=== PATIENT | female | born 1955 | race Caucasian/White ===

== ENCOUNTER 2020-08-14 09:06 | Outpatient (REF) | payer OTHER, SELFPAY ==
[2020-08-14 09:31] LABS: MANUAL DIFF FLAG NO
[2020-08-14 09:33] LABS: Basophils Absolute Auto 0.1 X10*3/uL (0.0-0.2); Eosinophils Absolute Auto 0.3 X10*3/uL (0.0-0.4); Eosinophils Percent Auto 4.8 % (0-4); Hematocrit 38.3 % (37-47); Hemoglobin 12.2 g/dl (12.0-16.0); Imm Gran Abs Auto 0.03 X10*3/uL (0.00-0.03); Imm Gran Pct Auto 0.5 % (0.0-0.4); Lymphocytes Absolute Auto 2.8 X10*3/uL (1.2-4.9); Lymphocytes Percent Auto 46.3 % (20-40); Mean Corpuscular HGB Conc 31.9 g/dl (31.0-35.0); Mean Corpuscular Hemoglobin 27.2 pg (27.0-33.0); Mean Corpuscular Volume 85.5 fL (80-98); Mean Platelet Volume 10.5 fL (9.4-12.3); Monocytes Absolute Auto 0.4 X10*3/uL (0.1-1.2); Monocytes Percent Auto 6.5 % (2-11); Neutrophils Absolute Auto 2.5 X10*3/uL (2.0-8.3); Neutrophils Percent Auto 40.9 % (45-73); Platelet Count 274 X10*3/uL (160-400); Red Blood Count 4.48 X10*6/uL (4.20-5.50); Red Cell Distribution Width 14.2 % (11.0-16.0)
[2020-08-14 10:01] LABS: Alanine Aminotransferase 21 U/L (0-31); Albumin Level 4.2 g/dL (3.5-5.0); Alkaline Phosphatase 136 U/L (39-117); Anion Gap 12 (12-20); Aspartate Amino Transferase 18 U/L (5-31); Bilirubin Total 0.4 mg/dL (0.0-1.0); Blood Urea Nitrogen 15 mg/dL (9-16); Calcium 8.9 mg/dL (8.4-10.2); Carbon Dioxide 28 mmol/L (22-29); Chloride 107 mmol/L (96-108); Cholesterol 181 mg/dL; Estimated Glomerular Filt Rate > 60; Glucose Random 92 mg/dL (60-115); HDL Cholesterol 47 mg/dL; LDL Cholesterol Calculated 101 mg/dl; Potassium 4.2 mmol/l (3.3-5.1); Sodium 143 mmol/L (135-145); Total Protein 6.8 g/dL (6.5-8.0); Triglycerides 165 mg/dL
[2020-08-14 10:23] LABS: Thyroid Stimulating Hormone 2.37 uIU/mL (0.32-4.0)
== END 2020-08-14 09:07 | disposition home or self-care (01) ==
LOC: HO.LAB 09:06
PROVIDERS: PCP Internal Medicine; Visit Provider Internal Medicine
DX: E78.00 Pure hypercholesterolemia, unspecified (principal); F31.5 Bipolar disorder, current episode depressed, severe, with psychotic features; K22.70 Barrett's esophagus without dysplasia
CPT/HCPCS: 36415; 80053; 80061; 84443; 85025

== ENCOUNTER 2020-10-23 06:37 | Day surgery (SDC) | payer OTHER, SELFPAY ==
[2020-10-17 14:38] VITALS: BMI 26.0
--- NOTE | 2020-10-22 09:32 | P.CONAN_ITS ---
Documented by User: Tammy Herrera 10/22/20 09:33 HPI - Anesthesia Eval Consult details Narrative: 65yo F for Upper Endoscopy [facility] Past Medical History Medical History Anxiety and depression Barretts esophagus High cholesterol Seasonal allergies Surgical History Surgical History History of bladder suspension procedure Hx of colonoscopy Hx of endoscopy Hx of right knee surgery Social History Social History Are you a primary team primary care physician to a significant other at home: No Do you presently have visiting nurse or other home services: No Smoking Status: Former smoker Smoking Quit Date: many years ago Use of substances other than those prescribed or required for medical reasons: No Have you been hit, kicked, punched, or otherwise hurt by someone within the past year? If so, by whom?: No Advance Directives: No Advance Directives Information Provided: No Advance Directives on File: No Recently lost weight without trying: No Meds Allergies Allergy/AdvReac Type Severity Reaction Status Date / Time Penicillins Allergy Rash Verified 10/17/20 14:38 Home Medications Medication Instructions Recorded Confirmed Last Taken Type omeprazole 2 cap PO DAILY 10/17/20 10/17/20 10/23/20 05:30 History paroxetine HCl 1 tab PO DAILY 10/17/20 10/17/20 10/23/20 05:30 History simvastatin 1 tab PO BEDTIME 10/17/20 10/17/20 Unknown History Exam Exam Date and Time: October 22, 2020 0932 Height,Weight and Vital Signs: Height 5 ft 3 in Weight 66.678 kg Assessment and Plan Assessment Anesthesia Assessment: Chart Reviewed Documented by User: Luna Mares 10/23/20 07:35 [facility] Past Medical History Medical History Anxiety and depression Barretts esophagus High cholesterol Seasonal allergies Family History Family history of problems with anesthesia: No Surgical History Surgical History History of bladder suspension procedure Hx of colonoscopy Hx of endoscopy Hx of right knee surgery History of Problems with Anesthesia: No Social History Social History Are you a primary team primary care physician to a significant other at home: No Do you presently have visiting nurse or other home services: No Smoking Status: Former smoker Smoking Quit Date: many years ago Use of substances other than those prescribed or required for medical reasons: No Have you been hit, kicked, punched, or otherwise hurt by someone within the past year? If so, by whom?: No Advance Directives: No Advance Directives Information Provided: No Advance Directives on File: No Recently lost weight without trying: No Meds Allergies Allergy/AdvReac Type Severity Reaction Status Date / Time Penicillins Allergy Rash Verified 10/17/20 14:38 Home Medications Medication Instructions Recorded Confirmed Last Taken Type omeprazole 2 cap PO DAILY 10/17/20 10/17/20 10/23/20 05:30 History paroxetine HCl 1 tab PO DAILY 10/17/20 10/17/20 10/23/20 05:30 History simvastatin 1 tab PO BEDTIME 10/17/20 10/17/20 Unknown History Exam Height,Weight and Vital Signs: Vital Signs Temp Pulse Resp BP Pulse Ox 10/23/20 06:54 97.2 F 61 16 138/76 95 Airway Mallampati Class: II TM Dist: >3cm Neck ROM: Full Heart: RRR Lungs: CTAB Assessment and Plan Assessment Anesthesia Assessment: Anesthesia Plan Discussed and Chart Reviewed Final Anesthetic Review NPO: Yes ASA Class: II Final Preanesthetic Review: No Changes in Pt Med Stat, Meds/Allgs Chart Reviewed, Consent Obtained/Reviewed and Anes Risks/Benef Reviewed Patient Risk: Low Procedure Risk: Low Assessment/Block/Sedation in SS: Assess/Block/Sedation-SS Anesthetic Plan Anesthetic Plan: MAC: Disposition: Standard PACU
[2020-10-23 06:54] VITALS: BP 138/76; PULSE 61; RESP 16; TEMP 36.2; O2SAT 95
[2020-10-23] MEDS: Lactated Ringers 1,000 ML 100 ML IVCONT (07:03)
--- NOTE | 2020-10-23 07:13 | MHC.SHP ---
Pre-Procedural Eval Section A The patient is an INPATIENT: No Changes since office visit: No Cold of Flu in the past 2 weeks, No New Medical Problems, No Changes in Medication and No Patient answered all questions The History & Physical has been completed within 30 days and I have reviewed it.: Yes Section B Chief Complaint: riggs's Allergies: Allergies Allergy/AdvReac Type Severity Reaction Status Date / Time Penicillins Allergy Rash Verified 10/17/20 14:38 Plan I have reviewed the history and physical and performed a pertinent physical examination on my patient. No changes have occurred unless specified.
[2020-10-23 07:57] VITALS: BP 105/58; PULSE 70; RESP 12; TEMP 36.3; O2SAT 98
--- NOTE | 2020-10-23 07:59 | PM.OP ---
Brief Operative Note Date of Service: 10/23/20 Pre-op diagnosis: barretts Post-op diagnosis: same (gastric polyps) Procedure: egd Surgeon: Ben Estrada Anesthesia: MAC Estimated blood loss (mL): 5 Pathology: other (bxs gastric polyp, egj, 28 cm) Condition: stable Disposition: PACU
[2020-10-23 08:12] VITALS: BP 120/83; PULSE 69; RESP 17; TEMP 36.3; O2SAT 99
--- NOTE | 2020-10-23 08:17 | OP_ITS ---
SURGEON: Ben Estrada MD INDICATIONS: Vásquez's esophagus. PREOPERATIVE DIAGNOSIS: POSTOPERATIVE DIAGNOSIS: PROCEDURE PERFORMED: Upper endoscopy with biopsy. ESTIMATED BLOOD LOSS: COMPLICATIONS: ANESTHESIA: ASSISTANTS: SPECIMENS: MEDICATIONS: Monitored anesthesia care. DESCRIPTION OF PROCEDURE: History and physical performed. The risks and benefits of the procedure were explained to the patient. Informed consent was obtained. The patient was placed in the left lateral decubitus position. The Olympus video gastroscope was introduced into the esophagus, stomach, and duodenum. Examination was performed. The scope was removed. She tolerated the procedure well and was taken to recovery in stable condition. FINDINGS: ESOPHAGUS: The esophagus was somewhat shortened. There was 2 cm length of Vásquez's esophagus without any ulcerated areas or raised lesions. Biopsies were obtained at the EG junction at 28 cm in all 4 quadrants. There was a large hiatal hernia. STOMACH: The stomach showed several gastric polyps. The largest measured approximately 12 mm to 14 mm and was semipedunculated. This was biopsied. The others were all less than 5 mm. DUODENUM: The bulb and second portion were normal. IMPRESSION: 1. Vásquez's esophagus. 2. Gastric polyps. RECOMMENDATION: Follow up the biopsy results. MD ANNITA Dale/KELLI / [id number]
== END 2020-10-23 08:41 | disposition home or self-care (01) ==
PROVIDERS: PCP Internal Medicine; Visit Provider Internal Medicine Gastroenterology
PROC: 0DJ08ZZ Inspection of Upper Intestinal Tract, Via Natural or Artificial Opening Endoscopic (ICD-10-PCS; CPT 43235; principal; 2020-10-23 07:30)
DX: K22.70 Barrett's esophagus without dysplasia (principal); K31.7 Polyp of stomach and duodenum; Z79.899 Other long term (current) drug therapy; Z87.891 Personal history of nicotine dependence; Z88.0 Allergy status to penicillin
CPT/HCPCS: 43239; 88305; 88342

== ENCOUNTER 2021-06-10 10:54 | Outpatient (REF) | payer OTHER, SELFPAY ==
--- NOTE | ~2021-06-10 | MM_ITS ---
EXAMINATION: MM SCREENING DIGITAL BREAST TOMOSYNTHESIS, BILATERAL CLINICAL INFORMATION: Screening. Asymptomatic. The lifetime risk of breast cancer based on the Tyrer-Cuzick Model is 7%. COMPARISON: Mammography: 04/23/2020, 11/25/2018, 11/21/2017 TECHNIQUE: Digital breast tomosynthesis is performed in both the craniocaudal and mediolateral oblique views along with computer-aided detection (CAD). Synthesized 2D images are generated from the tomosynthesis. FINDINGS: There are scattered areas of fibroglandular density (ACR BI-RADS breast composition Category b). There are no significant masses, abnormal calcifications, or other abnormalities. Parenchymal pattern is similar to prior studies. No developing density. No significant changes. MM/MM tomosynthesis screening BI IMPRESSION: No mammographic evidence of malignancy. ASSESSMENT: BI-RADS 1: Negative RECOMMENDATION: Routine annual mammography screening. This patient's information was entered into a reminder system with a target due date for their next mammogram.
== END 2021-06-10 10:55 | disposition home or self-care (01) ==
LOC: HO.MAMMO 10:54
PROVIDERS: Visit Provider Internal Medicine
DX: Z12.31 Encounter for screening mammogram for malignant neoplasm of breast (principal)
CPT/HCPCS: 77063; 77067

== ENCOUNTER 2021-08-26 08:39 | Outpatient (REF) | payer OTHER, SELFPAY ==
[2021-08-26 10:02] LABS: Alanine Aminotransferase 48 U/L (0-31); Albumin Level 4.4 g/dL (3.5-5.0); Alkaline Phosphatase 128 U/L (39-117); Anion Gap 13 (12-20); Aspartate Amino Transferase 29 U/L (5-31); Bilirubin Total 0.4 mg/dL (0.0-1.0); Blood Urea Nitrogen 13 mg/dL (9-16); Calcium 9.6 mg/dL (8.4-10.2); Carbon Dioxide 26 mmol/L (22-29); Chloride 107 mmol/L (96-108); Cholesterol 218 mg/dL; Estimated Glomerular Filt Rate > 60; Glucose Random 108 mg/dL (60-115); HDL Cholesterol 50 mg/dL; LDL Cholesterol Calculated 131 mg/dl; Potassium 4.2 mmol/L (3.3-5.1); Sodium 142 mmol/L (135-145); Total Protein 7.2 g/dL (6.5-8.0); Triglycerides 186 mg/dL
== END 2021-08-26 08:40 | disposition home or self-care (01) ==
LOC: HO.LAB 08:39
PROVIDERS: PCP Internal Medicine; Visit Provider Internal Medicine
DX: E78.2 Mixed hyperlipidemia (principal); F33.42 Major depressive disorder, recurrent, in full remission; K22.70 Barrett's esophagus without dysplasia
CPT/HCPCS: 36415; 80053; 80061

== ENCOUNTER 2022-06-11 11:24 | Outpatient (REF) | payer OTHER, SELFPAY ==
--- NOTE | ~2022-06-11 | MM_ITS ---
EXAMINATION: MM SCREENING DIGITAL BREAST TOMOSYNTHESIS, BILATERAL CLINICAL INFORMATION: Screening. Asymptomatic. The lifetime risk of breast cancer based on the Tyrer-Cuzick Model is 6.5%. COMPARISON: Mammography: 06/10/2021 and studies dating back to 09/26/2013. TECHNIQUE: Digital breast tomosynthesis is performed in both the craniocaudal and mediolateral oblique views along with computer-aided detection (CAD). Synthesized 2D images are generated from the tomosynthesis. FINDINGS: There are scattered areas of fibroglandular density (ACR BI-RADS breast composition Category b). There is a stable parenchymal pattern of the right breast with no new abnormal dominant mass or suspicious grouping of microcalcifications. Within the superior central aspect of the left breast on mediolateral oblique projection there is a partially circumscribed density measuring approximately 7 cm in diameter and lying approximately 7 cm from the nipple. I do not see a definite correlate on craniocaudal view. Recommend spot compression mediolateral oblique image as well as full-field 90 degree view. MM/MM tomosynthesis screening BI IMPRESSION: Left breast density on mediolateral oblique image for which spot compression film and possible ultrasound is recommended. ASSESSMENT: BI-RADS 0: Incomplete - Need Additional Imaging Evaluation. RECOMMENDATION: 1. Additional views of the left breast. 2. Targeted ultrasound if warranted after review of the additional views. 3. Radiology department staff will contact the patient for additional imaging. This patient's information was entered into a reminder system with a target due date for their next mammogram.
== END 2022-06-11 11:25 | disposition home or self-care (01) ==
LOC: HO.MAMMO 11:24
PROVIDERS: PCP Internal Medicine; Visit Provider Internal Medicine
DX: Z12.31 Encounter for screening mammogram for malignant neoplasm of breast (principal)
CPT/HCPCS: 77063; 77067

== ENCOUNTER 2022-06-16 08:56 | Outpatient (REF) | payer OTHER, SELFPAY ==
--- NOTE | ~2022-06-16 | MM_ITS ---
EXAMINATION: MM DIAGNOSTIC DIGITAL BREAST TOMOSYNTHESIS, LEFT CLINICAL INFORMATION: Asymmetric density superior left breast COMPARISON: Mammography: 06/11/2022 and studies dating back to 10/10/2015. TECHNIQUE: Digital breast tomosynthesis is performed. 2D images are generated from the tomosynthesis. The following views are obtained: Spot compression mediolateral oblique and 90 degree mediolateral views. FINDINGS: There are scattered areas of fibroglandular density (ACR BI-RADS breast composition Category b). The questioned density about the superior aspect of the left breast is seen to represent a turn in vessel without underlying suspicious mass. Results are provided to the patient at time of visit by the technologist. MM/MM tomosynthesis added views L IMPRESSION: Question density represents a turn in vessel with no mammographic evidence of malignancy. ASSESSMENT: BI-RADS 1: Negative RECOMMENDATION: Routine annual mammography screening due in 12 months. This patient's information was entered into a reminder system with a target due date for their next mammogram.
== END 2022-06-16 08:57 | disposition home or self-care (01) ==
LOC: HO.MAMMO 08:56
PROVIDERS: PCP Internal Medicine; Visit Provider Internal Medicine
DX: N64.89 Other specified disorders of breast (principal)
CPT/HCPCS: 77061; 77065

== ENCOUNTER 2022-08-29 08:37 | Outpatient (REF) | payer OTHER, SELFPAY ==
[2022-08-29 09:52] LABS: Alanine Aminotransferase 34 U/L (0-31); Albumin Level 4.5 g/dL (3.5-5.0); Alkaline Phosphatase 167 U/L (39-117); Anion Gap 16 (12-20); Aspartate Amino Transferase 28 U/L (5-31); Bilirubin Total 0.5 mg/dL (0.0-1.0); Blood Urea Nitrogen 15 mg/dL (9-16); Calcium 9.1 mg/dL (8.4-10.2); Carbon Dioxide 24 mmol/L (22-29); Chloride 108 mmol/L (96-108); Cholesterol 170 mg/dL; Estimated Glomerular Filt Rate > 60; Glucose Random 90 mg/dL (60-115); HDL Cholesterol 56 mg/dL; LDL Cholesterol Calculated 89 mg/dl; Potassium 4.5 mmol/L (3.3-5.1); Sodium 143 mmol/L (135-145); Total Protein 7.1 g/dL (6.5-8.0); Triglycerides 128 mg/dL
== END 2022-08-29 08:38 | disposition home or self-care (01) ==
LOC: HO.LAB 08:37
PROVIDERS: PCP Internal Medicine; Visit Provider Internal Medicine
DX: E78.00 Pure hypercholesterolemia, unspecified (principal); F33.41 Major depressive disorder, recurrent, in partial remission; K22.70 Barrett's esophagus without dysplasia
CPT/HCPCS: 36415; 80053; 80061

== ENCOUNTER 2022-11-18 09:48 | Outpatient (REF) | payer OTHER, SELFPAY ==
[2022-11-18 11:06] LABS: MANUAL DIFF FLAG NO
[2022-11-18 11:14] LABS: Basophils Absolute Auto 0.1 X10*3/uL (0.0-0.2); Basophils Percent Auto 1.5 % (0-2); Eosinophils Absolute Auto 0.2 X10*3/uL (0.0-0.4); Eosinophils Percent Auto 3.8 % (0-4); Hematocrit 36.9 % (37.0-47.0); Hemoglobin 11.5 g/dl (12.0-16.0); Imm Gran Abs Auto 0.03 X10*3/uL (0.00-0.03); Imm Gran Pct Auto 0.5 % (0.0-0.4); Lymphocytes Absolute Auto 2.7 X10*3/uL (1.2-4.9); Lymphocytes Percent Auto 45.6 % (20-40); Mean Corpuscular HGB Conc 31.2 g/dl (31.0-35.0); Mean Corpuscular Hemoglobin 26.3 pg (27.0-33.0); Mean Corpuscular Volume 84.4 fL (80.0-98.0); Mean Platelet Volume 11.1 fL (9.4-12.3); Monocytes Absolute Auto 0.4 X10*3/uL (0.1-1.2); Neutrophils Absolute Auto 2.5 x10*3/uL (2.0-8.3); Neutrophils Percent Auto 42.6 % (45-73); Platelet Count 350 X10*3/uL (160-400); Red Blood Count 4.37 X10*6/uL (4.20-5.50); Red Cell Distribution Width 15.2 % (11.0-16.0); White Blood Count 5.8 X10*3/uL (4.8-10.8)
[2022-11-18 11:48] LABS: Alanine Aminotransferase 27 U/L (0-31); Albumin Level 4.1 g/dL (3.5-5.0); Alkaline Phosphatase 141 U/L (39-117); Anion Gap 12 (12-20); Aspartate Amino Transferase 22 U/L (5-31); Bilirubin Total 0.5 mg/dL (0.0-1.0); Blood Urea Nitrogen 14 mg/dL (9-16); Calcium 8.9 mg/dL (8.4-10.2); Carbon Dioxide 28 mmol/L (22-29); Chloride 107 mmol/L (96-108); Cholesterol 161 mg/dL; Estimated Glomerular Filt Rate > 60; Glucose Fasting 85 mg/dL (60-99); HDL Cholesterol 49 mg/dL; LDL Cholesterol Calculated 90 mg/dl; Potassium 4.7 mmol/L (3.3-5.1); Sodium 142 mmol/L (135-145); Total Protein 6.5 g/dL (6.5-8.0); Triglycerides 114 mg/dL
== END 2022-11-18 09:49 | disposition home or self-care (01) ==
LOC: HO.10HDL 09:48
PROVIDERS: Visit Provider Internal Medicine
DX: Z00.00 Encounter for general adult medical examination without abnormal findings (principal); E78.00 Pure hypercholesterolemia, unspecified; F33.41 Major depressive disorder, recurrent, in partial remission; I10 Essential (primary) hypertension
CPT/HCPCS: 36415; 80053; 80061; 85025

== ENCOUNTER 2023-07-22 14:09 | Outpatient (REF) | payer OTHER, SELFPAY | END 2023-07-22 14:10 | disposition home or self-care (01) | LOC: HO.MAMMO 14:09 | PROVIDERS: PCP Internal Medicine; Visit Provider Internal Medicine | DX: Z12.31 Encounter for screening mammogram for malignant neoplasm of breast (principal) | CPT/HCPCS: 77063; 77067 ==

== ENCOUNTER → 2023-07-22 14:15 | Outpatient (BNV) | payer OTHER, SELFPAY | PROVIDERS: PCP Internal Medicine; Visit Provider Radiology Diagnostic Radiology | DX: Z12.31 Encounter for screening mammogram for malignant neoplasm of breast (principal) | CPT/HCPCS: 77063; 77067 ==

== ENCOUNTER 2024-01-22 07:40 | Day surgery (SDC) | payer OTHER, SELFPAY ==
--- NOTE | 2024-01-20 12:16 | P.CONAN_ITS ---
Documented by User: Tammy Herrera NP 01/20/24 12:16 HPI - Anesthesia Eval Consult details Narrative: 68yo F for Upper Endoscopy [facility] Past Medical History Medical History HTN (hypertension) Anxiety and depression High cholesterol Seasonal allergies Barretts esophagus Family History Family history of problems with anesthesia: No Surgical History Surgical History History of esophagogastroduodenoscopy (EGD) Hx of endoscopy Hx of right knee surgery History of bladder suspension procedure Hx of colonoscopy History of Problems with Anesthesia: No Social History Social History Are you a primary residential care officer to a significant other at home: No Do you presently have visiting nurse or other home services: No Patient Tobacco Use Status: Never used Tobacco Use of substances other than those prescribed or required for medical reasons: No Are you DNR?: No Advance Directives: No Advance Directives Information Provided: Yes Meds Allergies Allergy/AdvReac Type Severity Reaction Status Date / Time Penicillins Allergy Rash Verified 01/22/24 08:20 Home Medications ?Medication ?Instructions ?Recorded ?Confirmed ?Last Taken ?Type omeprazole 20 mg capsule,delayed 2 cap PO DAILY 10/17/20 01/22/24 01/21/24 History release simvastatin 20 mg tablet 1 tab PO BEDTIME 10/17/20 01/22/24 01/21/24 History atorvastatin 40 mg tablet 40 mg PO BEDTIME 01/20/24 01/22/24 01/21/24 History losartan 50 mg-hydrochlorothiazide 1 tab PO DAILY 01/20/24 01/22/24 01/21/24 History 12.5 mg tablet paroxetine HCl 10 mg tablet 10 mg PO DAILY 01/20/24 01/22/24 01/21/24 History Assessment and Plan Assessment Anesthesia Assessment: Chart Reviewed Final Anesthetic Review Family History of Problems with Anesthesia: No History of Problems with Anesthesia: No Documented by User: Luke Mcintyre MD 01/22/24 08:22 PMF Past Medical History Medical History HTN (hypertension) Anxiety and depression High cholesterol Seasonal allergies Barretts esophagus Surgical History Surgical History History of esophagogastroduodenoscopy (EGD) Hx of endoscopy Hx of right knee surgery History of bladder suspension procedure Hx of colonoscopy Social History Social History Are you a primary residential care officer to a significant other at home: No Do you presently have visiting nurse or other home services: No Patient Tobacco Use Status: Never used Tobacco Use of substances other than those prescribed or required for medical reasons: No Are you DNR?: No Advance Directives: No Advance Directives Information Provided: Yes Meds Allergies Allergy/AdvReac Type Severity Reaction Status Date / Time Penicillins Allergy Rash Verified 01/22/24 08:20 Home Medications ?Medication ?Instructions ?Recorded ?Confirmed ?Last Taken ?Type omeprazole 20 mg capsule,delayed 2 cap PO DAILY 10/17/20 01/22/24 01/21/24 History release simvastatin 20 mg tablet 1 tab PO BEDTIME 10/17/20 01/22/24 01/21/24 History atorvastatin 40 mg tablet 40 mg PO BEDTIME 01/20/24 01/22/24 01/21/24 History losartan 50 mg-hydrochlorothiazide 1 tab PO DAILY 01/20/24 01/22/24 01/21/24 History 12.5 mg tablet paroxetine HCl 10 mg tablet 10 mg PO DAILY 01/20/24 01/22/24 01/21/24 History Exam Airway Mallampati Class: III TM Dist: >3cm Neck ROM: Full Assessment and Plan Assessment Anesthesia Assessment: Anesthesia Plan Discussed Final Anesthetic Review NPO: Yes ASA Class: II Final Preanesthetic Review: No Changes in Pt Med Stat, Meds/Allgs Chart R jeffrey, Consent Obtained/Reviewed and Anes Risks/Benef Reviewed Patient Risk: Intermediate Procedure Risk: Low Anesthetic Plan Anesthetic Plan: TIVA Disposition: Standard PACU
[2024-01-20 14:32] VITALS: BMI 23.4
[2024-01-22 08:03] VITALS: BMI 23.5
[2024-01-22 08:11] VITALS: BP 131/67; PULSE 60; RESP 16; TEMP 36.1; O2SAT 94
[2024-01-22] MEDS: Lactated Ringers 1,000 ML 100 ML IVCONT (08:12)
--- NOTE | 2024-01-22 09:11 | MHC.SHP ---
Pre-Procedural Eval Section A - 24 Hr Update-Section A only Date of Service: 01/22/24 Section B - Complete if H&P > 30 days Chief Complaint: Vásquez's esophagus without dysplasia Details of Present Illness: see H&P no changes Relevant Family History (Specify if Yes): No Relevant Social History: None Present Medications: see Short Stay Collaborative assessment Medical History: No relevant PMH Allergies: Allergies Allergy/AdvReac Type Severity Reaction Status Date / Time Penicillins Allergy Rash Verified 01/22/24 08:20 Review of Systems Sugical H&P ROS: Negative: Constitution, Cardiovascular, Respiratory, Neurological, Psychiatric, Hem-Onc, Allergic/Immunologic, Gastrointestinal, Genitourinary, Musculoskeletal, Integumentary, Endocrine and Eyes/Ears/Nose/Throat Exam Surgical H&P Exam: Normal: HEENT, Normal: Heart, Normal: Lungs, Normal: Extremities, Normal: Abdomen, Normal: Skin and Normal: Neurological Plan Diagnosis/Plan: Unchanged I have reviewed the history and physical and performed a pertinent physical examination on my patient. No changes have occurred unless specified. Time Spent With Patient Time: Total time managing care of this patient today ____ minutes.
[2024-01-22 09:59] VITALS: BP 114/71; PULSE 74; RESP 16; TEMP 36.6; O2SAT 98
[2024-01-22 10:14] VITALS: BP 118/70; PULSE 63; RESP 16; O2SAT 99
[2024-01-22 10:27] VITALS: BP 115/70; PULSE 69; RESP 16; TEMP 36.8; O2SAT 97
--- NOTE | 2024-01-22 10:29 | OP_ITS ---
DATE OF SERVICE: 01/22/2024 SURGEON: Ben Estrada MD INDICATIONS: Vásquez esophagus. PREOPERATIVE DIAGNOSIS: POSTOPERATIVE DIAGNOSIS: PROCEDURE PERFORMED: Upper endoscopy with biopsy. ESTIMATED BLOOD LOSS: COMPLICATIONS: ANESTHESIA: Monitored anesthesia care. ASSISTANTS: SPECIMENS: DESCRIPTION OF PROCEDURE: A history and physical was performed. The risks and benefits of the procedure were explained to the patient and informed consent was obtained. The patient was placed in the left lateral decubitus position. The Olympus video gastroscope was introduced into the esophagus, stomach, and duodenum. Examination was performed and the scope was removed. She tolerated the procedure well and was returned to the recovery area in stable condition. FINDINGS: Esophagus: There was a 2 cm area of Vásquez esophagus without any raised lesions or ulcerated areas. Biopsies were obtained at 28 cm and at the EG junction at 30 cm. There was a large hiatal hernia, which made the exam difficult. That along with the patient's J-shaped stomach made intubating the duodenum challenging. There was a large 10 mm gastric polyp on the lesser curvature of the anterior wall. This showed some inflammatory changes, likely from prolapse. Biopsies were obtained from that polyp. Duodenum: The bulb and 2nd portion were identified and appeared normal. IMPRESSION: 1. Vásquez esophagus. 2. Large hiatal hernia. 3. Gastric polyp. RECOMMENDATION: Follow up the biopsy results. MD ANNITA Dale/YADIL / [id number]
== END 2024-01-22 11:09 | disposition home or self-care (01) ==
PROVIDERS: PCP Internal Medicine; Visit Provider Internal Medicine Gastroenterology
PROC: 0DJ08ZZ Inspection of Upper Intestinal Tract, Via Natural or Artificial Opening Endoscopic (ICD-10-PCS; CPT 43235; principal; 2024-01-22 10:20)
DX: K22.70 Barrett's esophagus without dysplasia (principal); K31.7 Polyp of stomach and duodenum; K44.9 Diaphragmatic hernia without obstruction or gangrene; I10 Essential (primary) hypertension; Z79.899 Other long term (current) drug therapy; Z88.0 Allergy status to penicillin
CPT/HCPCS: 43239; 88305; 88313; 88342; J2704

== ENCOUNTER 2024-01-26 11:46 | Emergency (ER) | payer OTHER, SELFPAY ==
--- NOTE | ~2024-01-26 | XR_ITS ---
EXAMINATION: XR KNEE, LEFT CLINICAL INFORMATION: Fall COMPARISON: None available. TECHNIQUE: Four views of the left knee. FINDINGS: No fracture or joint effusion. Alignment is anatomic. Joint spaces are maintained. No abnormal soft tissue calcification. XR/XR knee LT 4V IMPRESSION: Normal left knee.
--- NOTE | ~2024-01-26 | CT_ITS ---
EXAMINATION: CT HEAD WITHOUT CONTRAST CLINICAL INFORMATION: Head strike COMPARISON: None TECHNIQUE: Contiguous axial imaging was performed from the skull base to vertex without intravenous administration of contrast. This CT examination was performed using dose optimization techniques as appropriate, variously including the following: *Automated exposure control *Adjustment of mA and/or kV according to patient size (this includes techniques or standardized protocols for targeted exams where dose is matched to indication/reason for exam; i.e. extremities or head) *Use of iterative reconstruction technique DLP: 595.35 mGy-cm FINDINGS: There is no evidence of acute intracranial hemorrhage or territorial infarction. Chronic white matter small vessel ischemic changes. Mild cerebral atrophy. No abnormal mass effect or midline shift is seen. Iqbal to white matter differentiation is well preserved. No extra-axial fluid collections are identified. The ventricles are normal in size. There is no abnormal attenuation within the brain parenchyma. The osseous structures and soft tissues are normal. The mastoid air cells and visualized portions of the paranasal sinuses are well aerated. Multiple bilateral soft tissue densities potentially representing sebaceous cyst some of which appear calcified. CT/CT cervical spine wo IV con IMPRESSION: 1. No acute intracranial pathology. 2. Chronic white matter small vessel ischemic changes. EXAMINATION: Noncontrast CT scan of the cervical spine. INDICATION: Fall COMPARISON: None. TECHNIQUE: Helical, multidetector axial images were obtained from the occiput to the upper thorax. Coronal and sagittal reformats of the cervical spine were provided for interpretation. DLP: 283.14 mGy-cm FINDINGS: No acute fractures or dislocations of the cervical spine are seen. Multilevel degenerative changes. Anatomic alignment and positioning of the vertebral bodies and posterior elements is noted. The atlantoaxial joint and craniovertebral articulations are normal without evidence of subluxation. There is no prevertebral soft tissue swelling. Subcentimeter hypodense foci bilateral thyroid lobes. Based on the recommendations of the ACR Incidental Thyroid Findings Committee (JACR 2015 Sep; 12(2):143-50), no imaging followup is recommended for incidental thyroid nodules with largest axial dimension less than 1.5 cm in patients greater than 35 years of age in the absence of high risk imaging features, symptomatic thyroid disease, or increased risk for thyroid cancer. Biapical pleural parenchymal lung scarring. IMPRESSION: 1. No acute visible fracture or dislocation. 2. Multilevel degenerative changes.
--- NOTE | ~2024-01-26 | CT_ITS ---
EXAMINATION: CT HEAD WITHOUT CONTRAST CLINICAL INFORMATION: Head strike COMPARISON: None TECHNIQUE: Contiguous axial imaging was performed from the skull base to vertex without intravenous administration of contrast. This CT examination was performed using dose optimization techniques as appropriate, variously including the following: *Automated exposure control *Adjustment of mA and/or kV according to patient size (this includes techniques or standardized protocols for targeted exams where dose is matched to indication/reason for exam; i.e. extremities or head) *Use of iterative reconstruction technique DLP: 595.35 mGy-cm FINDINGS: There is no evidence of acute intracranial hemorrhage or territorial infarction. Chronic white matter small vessel ischemic changes. Mild cerebral atrophy. No abnormal mass effect or midline shift is seen. Iqbal to white matter differentiation is well preserved. No extra-axial fluid collections are identified. The ventricles are normal in size. There is no abnormal attenuation within the brain parenchyma. The osseous structures and soft tissues are normal. The mastoid air cells and visualized portions of the paranasal sinuses are well aerated. Multiple bilateral soft tissue densities potentially representing sebaceous cyst some of which appear calcified. CT/CT head/brain wo IV con IMPRESSION: 1. No acute intracranial pathology. 2. Chronic white matter small vessel ischemic changes. EXAMINATION: Noncontrast CT scan of the cervical spine. INDICATION: Fall COMPARISON: None. TECHNIQUE: Helical, multidetector axial images were obtained from the occiput to the upper thorax. Coronal and sagittal reformats of the cervical spine were provided for interpretation. DLP: 283.14 mGy-cm FINDINGS: No acute fractures or dislocations of the cervical spine are seen. Multilevel degenerative changes. Anatomic alignment and positioning of the vertebral bodies and posterior elements is noted. The atlantoaxial joint and craniovertebral articulations are normal without evidence of subluxation. There is no prevertebral soft tissue swelling. Subcentimeter hypodense foci bilateral thyroid lobes. Based on the recommendations of the ACR Incidental Thyroid Findings Committee (JACR 2014; 12(2):143-50), no imaging followup is recommended for incidental thyroid nodules with largest axial dimension less than 1.5 cm in patients greater than 35 years of age in the absence of high risk imaging features, symptomatic thyroid disease, or increased risk for thyroid cancer. Biapical pleural parenchymal lung scarring. IMPRESSION: 1. No acute visible fracture or dislocation. 2. Multilevel degenerative changes.
--- NOTE | ~2024-01-26 | XR_ITS ---
EXAMINATION: XR HAND/WRIST, RIGHT CLINICAL INFORMATION: Fall COMPARISON: None TECHNIQUE: PA, lateral, and oblique views of the right hand and wrist. FINDINGS: There is no fracture. There is osteoarthritis of the second DIP joint manifested by marginal osteophytes. Remaining bones joints soft tissues are normal.. XR/XR hand wrist RT IMPRESSION: 1. No fracture. 2. Osteoarthritis of the second DIP joint.
[2024-01-26 12:13] VITALS: BP 144/75; PULSE 81; RESP 16; TEMP 36.6; O2SAT 95; BMI 23.2
--- NOTE | 2024-01-26 12:13 | ED_ITS ---
HPI - General Adult General Chief complaint: Fall Stated complaint: Fall yest/L knee, wrist pain Time Seen by Provider: 01/26/24 13:21 Source: patient Mode of arrival: ambulatory Limitations: no limitations History of Present Illness ED Provider: Stephan Chaudhari PA-C HPI narrative: This is a 68 yo female pmh of HTN, anxiety and dpression, high cholesterol, seasonal allergies, and Barretts esophagus presents status post trip and fall yesterday. Patient reports she landed on both wrists and is now experiencing right wrist and left knee pain. Denies head strike or loss of consciousness, however states she sustained a small laceration to to top of her lip, bleeding controlled. Not on blood thinners. Denies headache, weakness, numbness, tingling, fever, chills, chest pain, sob, trauma to teeth. Up to date on tetanus. No preceding sx to fall such as cp, sob, dizziness, weakness reports strictly trip on the sidewalk / mechanical Related Data Home Medications ?Medication ?Instructions ?Recorded ?Confirmed omeprazole 20 mg capsule,delayed 2 cap PO DAILY 10/17/20 01/22/24 release simvastatin 20 mg tablet 1 tab PO BEDTIME 10/17/20 01/22/24 atorvastatin 40 mg tablet 40 mg PO BEDTIME 01/20/24 01/22/24 losartan 50 mg-hydrochlorothiazide 1 tab PO DAILY 01/20/24 01/22/24 12.5 mg tablet paroxetine HCl 10 mg tablet 10 mg PO DAILY 01/20/24 01/22/24 Previous Rx's ?Medication ?Instructions ?Recorded acetaminophen 325 mg capsule 325 mg PO Q4H PRN pain #30 caps 01/26/24 (Tylenol) ibuprofen 600 mg tablet 600 mg PO Q6H PRN fever or pain 01/26/24 #30 tabs Allergies Allergy/AdvReac Type Severity Reaction Status Date / Time Penicillins Allergy Rash Verified 01/26/24 12:18 Review of Systems Review of Systems: Yes all other systems are reviewed and are negative PMFSH Past Medical History Attestation statement: The following information was validated with the patient. Source: old records reviewed and nursing notes reviewed Medical History HTN (hypertension) Anxiety and depression High cholesterol Seasonal allergies Barretts esophagus Surgical History History of esophagogastroduodenoscopy (EGD) Hx of endoscopy Hx of right knee surgery History of bladder suspension procedure Hx of colonoscopy Social History Social History Are you a primary personal caregiver to a significant other at home: No Do you presently have visiting nurse or other home services: No Patient Tobacco Use Status: Never used Tobacco Advance Directives: No Advance Directives Information Provided: Yes Do you have a plan to hurt others: No Plan Physical Exam ED Vital Signs: Vital Signs - 24 hr 01/26/24 12:13 Temperature 97.9 F Pulse Rate 81 Respiratory Rate 16 Blood Pressure 144/75 H Pulse Oximetry 95 Oxygen Delivery Method Room Air BMI result Body Mass Index 23.2 vss. Appearance: Alert.? Oriented X3.? No acute distress.? Head: Bandage covering laceration to top of lip, bleeding controlled seems to be scabbed over and healing. No trauma to teeth. Normocephalic, atraumatic, no step-offs or deformities Eyes: Pupils equal, round and reactive to light.? Neck: Normal inspection.? Neck supple.? CVS: Normal heart rate and rhythm.? Pulses normal.? Respiratory: No respiratory distress.? Breath sounds normal.? Abdomen: Soft and nontender.? Skin: Skin warm and dry.? Normal skin color.? Normal skin turgor.? Extremities: Slight edema to right wrist and abrasion to left knee w/ overlying ecchymosis and mild edema, bleeding controlled.?Minimal ttp of right wrist and left knee.Full ROM in bilateral upper and lower extremities. 5/5 strength to bilateral upper and lower extremities. 2+ DP, AT,PT and popliteal puless equal and b/l. Radail pulses 2+ b/. No wrist drop b/l. No scaphoid tenderness b/l. Normal sensation distally to b/l UE and LE w/ < 2 second cap refil. Back: No midline tenderness, no C-spine tenderness, full range of motion Neuro: Oriented X 3.? No motor deficit.? No sensory deficit. CN 2-12 intact . Normal finger to nose, heel to espinosa, steady tandem gait normal coordination. Negative romberg and pronator drift. NIHSS-0 GCS-15 Course Course Course Narrative: This is a Rapid Medical Examination (RME) performed by Sofi Leiva PA-C in [facility]. Full HPI, ROS, assessment and treatment plan per primary provider in the Main ED. 68 yo female here for eval of right wrist pain and left knee pain s/p mechanical fall yesterday. admits she was walking outside and while looking around, tripped on the sidewalk. FOOSH. No LOC. No head strike however admits to grazing her lip across the concrete side walk. not on AC. abrasions noted to upper lip and anterior left knee. right wrist wtih minimal swelling. FROM intact. mail processing associate strength intact. 2+radial pulse. FROM intact to left knee. 2+ popliteal, dp/pt pulse intact. ambulating with steady gait. EOMs intact w/o entrapment. small upper lip hematoma. dentition intact. Plan: xrs Reevaluation(s) Reevaluation #1: No acute findings on CT head and cervical spine.Normal left knee. Xray of rt wrist no fracture. OA of the second DIPjoint. Tylenol given Twan wrap for r knee will be put on by nursing/tech. Educated patient on diagnosis and treatment plan, answered all question, patient verbalizes understanding. At this time patient will be discharged home, advised to return with new or worsening symptoms. Educated on worrisome signs and symptoms and when to return. At this time I feel comfortable discharge home. Time: 15:21 Medical Decision Making Medical Decision Making [facility] Narrative: 1340 68 yo female with right wrist and left knee pain status post fall on sidewalk, laceration to top of lip. PE: Extremities: Slight edema to right wrist and abrasion to left knee, bleeding controlled.?Minimal ttp of right wrist and left knee.Full ROM in bilateral upper and lower extremities. 5/5 strength to bilateral upper and lower extremities Bandage covering laceration to top of lip, bleeding controlled. Differential: Right wrist sprain vs strain, left knee abrasion w/ possible sprai n or strain. Low suspicion for ligament or tendon tear.. Unlikely fracture, threat to limb, neurovascular compromise, brain bleed. No signs of traumatic injury to chest, abdomen pelvis, or teeth. Plan: Imaging pending. Differential Diagnosis Differential Diagnoses: The differential diagnosis associated with the presentation includes Right wrist sprain vs strain, left knee abrasion w/ possible sprain or strain. Low suspicion for ligament or tendon tear.. Unlikely fracture, threat to limb, neurovascular compromise, brain bleed. No signs of traumatic injury to chest, abdomen pelvis, or teeth. Admission/Observation Consideration of admission/observation: Escalation of care including admission/observation considered (unlikely) unlikely Independent Interpretation I performed an independent interpretation of an: CT Scan (CT/CT head/brain wo IV con IMPRESSION: 1. No acute intracranial pathology. 2. Chronic white matter small vessel ischemic changes. IMPRESSION: 1. No acute visible fracture or dislocation. 2. Multilevel degenerative changes. ) External Record Review External record reviewed: Inpatient record, Office record, Outpatient record, Prior outpatient labs, Primary care record and Outside ED record Prescription Management I considered prescription management with: Pain Medication (tylenol ibuprofen ) Chronic Conditions Patient?s care impacted by: Hypertension and Other (Anxiety, depression, high cholesterol, seasonal allergies, Barretts esophagus) Critical Care Time Critical Care Time Critical Care Time: No Discharge Plan Discharge Clinical Impression: Fall, Acute pain of left knee, Acute pain of right wrist, Laceration of lip, Concussion without loss of consciousness Patient Disposition: Home, Self-Care Instructions: Wrist Injury (ED), Laceration (DC), Knee Pain (ED), Post Concussion Syndrome (ED), R.I.C.E. Treatment (ED), Fall Prevention (ED) Additional Instructions: Take your medications as prescribed. If you were prescribed antibiotics today, it is important that you take your medication to their entirety, do not skip any doses, do not finish them early. Follow-up with your primary care provider this week. Return to the emergency department with new or worsening symptoms. Such as fevers, chills, chest pain, shortness of breath, nausea, vomiting, dizziness, headache, vision changes, lethargy In case of emergency call 911 Apply the Twan wrap to left knee to help with swelling. Rest, ice, compress and elevate. If you continue to have pain please follow-up with orthopedics. You may have gotten a concussion from this fall. Please read handout carefully on post concussive syndrome return with any new or worsening symptoms. You can take ibuprofen every 6 hours Tylenol every 4 as needed for pain or discomfort. CT/CT head/brain wo IV con IMPRESSION: 1. No acute intracranial pathology. 2. Chronic white matter small vessel ischemic changes. IMPRESSION: 1. No acute visible fracture or dislocation. 2. Multilevel degenerative changes. Prescriptions: New ibuprofen 600 mg tablet 600 mg PO Q6H PRN (Reason: fever or pain) Qty: 30 0RF acetaminophen [Tylenol] 325 mg capsule 325 mg PO Q4H PRN (Reason: pain) Qty: 30 0RF No Action simvastatin 20 mg tablet 1 tab PO BEDTIME omeprazole 20 mg capsule,delayed release(DR/EC) 2 cap PO DAILY atorvastatin 40 mg tablet 40 mg PO BEDTIME paroxetine HCl 10 mg tablet 10 mg PO DAILY losartan-hydrochlorothiazide 50-12.5 mg tablet 1 tab PO DAILY Referrals: Maggie Gong MD [Primary Care Provider] - 2 days Print Language: Pashto
[2024-01-26] MEDS: Acetaminophen 325 MG TABLET 975 MG PO (16:09)
[2024-01-26 16:12] VITALS: BP 135/70; PULSE 80; RESP 16; TEMP 36.4; O2SAT 95
== END 2024-01-26 16:16 | disposition home or self-care (01) ==
PROVIDERS: Emergency Provider Emergency Medicine; PCP Internal Medicine
DX: S06.0X0A Concussion without loss of consciousness, initial encounter (principal); S01.511A Laceration without foreign body of lip, initial encounter; M25.562 Pain in left knee; M25.531 Pain in right wrist; I10 Essential (primary) hypertension; W01.0XXA Fall on same level from slipping, tripping and stumbling without subsequent striking against object, initial encounter; Y93.9 Activity, unspecified; Y92.480 Sidewalk as the place of occurrence of the external cause; Y99.9 Unspecified external cause status
CPT/HCPCS: 70450; 72125; 73110; 73130; 73564; 99283; 99284

== ENCOUNTER 2024-02-15 08:40 | Outpatient (REF) | payer OTHER, SELFPAY ==
[2024-02-15 11:07] LABS: MANUAL DIFF FLAG NO
[2024-02-15 11:08] LABS: Basophils Absolute Auto 0.1 X10*3/uL (0.0-0.2); Basophils Percent Auto 1.1 % (0-2); Eosinophils Absolute Auto 0.4 X10*3/uL (0.0-0.4); Eosinophils Percent Auto 6.2 % (0-4); Hematocrit 35.7 % (37.0-47.0); Hemoglobin 11.5 g/dl (12.0-16.0); Imm Gran Abs Auto 0.02 X10*3/uL (0.00-0.03); Imm Gran Pct Auto 0.3 % (0.0-0.4); Lymphocytes Absolute Auto 3.4 X10*3/uL (1.2-4.9); Lymphocytes Percent Auto 47.6 % (20-40); Mean Corpuscular HGB Conc 32.2 g/dl (31.0-35.0); Mean Corpuscular Hemoglobin 26.7 pg (27.0-33.0); Mean Platelet Volume 10.8 fL (9.4-12.3); Monocytes Absolute Auto 0.4 X10*3/uL (0.1-1.2); Monocytes Percent Auto 5.9 % (2-11); Neutrophils Absolute Auto 2.7 x10*3/uL (2.0-8.3); Neutrophils Percent Auto 38.9 % (45-73); Platelet Count 330 X10*3/uL (160-400); Red Cell Distribution Width 14.9 % (11.0-16.0); White Blood Count 7.1 X10*3/uL (4.8-10.8)
[2024-02-15 11:30] LABS: Alanine Aminotransferase 26 U/L (0-31); Albumin Level 4.2 g/dL (3.5-5.0); Alkaline Phosphatase 105 U/L (39-117); Anion Gap 16 (12-20); Aspartate Amino Transferase 23 U/L (5-31); Bilirubin Total 0.5 mg/dL (0.0-1.0); Blood Urea Nitrogen 19 mg/dL (9-16); Calcium 9.1 mg/dL (8.4-10.2); Carbon Dioxide 28 mmol/L (22-29); Chloride 103 mmol/L (96-108); Cholesterol 162 mg/dL (<200); Estimated Glomerular Filt Rate > 60; Glucose Random 90 mg/dL (60-115); HDL Cholesterol 54 mg/dL (>40); LDL Cholesterol Calculated 76 mg/dL (<100); Potassium 3.6 mmol/L (3.3-5.1); Sodium 143 mmol/L (135-145); Triglycerides 164 mg/dL (<150)
== END 2024-02-15 08:41 | disposition home or self-care (01) ==
LOC: HO.10HDL 08:40
PROVIDERS: Visit Provider Internal Medicine
DX: Z00.00 Encounter for general adult medical examination without abnormal findings (principal); E78.00 Pure hypercholesterolemia, unspecified; F32.5 Major depressive disorder, single episode, in full remission; I10 Essential (primary) hypertension; K22.70 Barrett's esophagus without dysplasia
CPT/HCPCS: 36415; 80053; 80061; 85025

== ENCOUNTER 2024-08-25 15:03 | Outpatient (REF) | payer MEDICARE, SELFPAY ==
--- NOTE | ~2024-08-25 | MM_ITS ---
EXAMINATION: MM SCREENING DIGITAL BREAST TOMOSYNTHESIS, BILATERAL CLINICAL INFORMATION: Screening. Asymptomatic. COMPARISON: Mammography: Comparison is made with available priors TECHNIQUE: Digital breast mammography with tomosynthesis is performed in both the craniocaudal and mediolateral oblique views along with computer-aided detection (CAD). FINDINGS: There are scattered areas of fibroglandular density (ACR BI-RADS breast composition Category b). There are no significant masses, abnormal calcifications, or other abnormalities. MM/MM tomosynthesis screening BI IMPRESSION: No mammographic evidence of malignancy. ASSESSMENT: BI-RADS BI-RADS 1 - Negative RECOMMENDATION: Routine annual mammography screening. 1 year F/U This examination should not preclude the clinical evaluation of a suspicious palpable abnormality. This patient's information was entered into a reminder system with a target due date for their next mammogram. Electronically signed by: Alicja Zavala DO 09/04/2024 06:58 AM [email or web address]
--- OUTSIDE RECORDS SUMMARY | 2024-08-25 16:34 | XMS_ITS ---
Author Organization [facility] Address [address] [place] [phone] Care Team Providers Care Tectonophysicist Name Role Phone Maggie Gong Primary Care Provider Unavailab Ben Moore Jr [phone] REASON FOR VISIT pathology Encounters Encounter Location Date Provider Diagnosis [facility] [address] [place] [address] 01/28/2024 Ben Estrada Jr PLAN OF TREATMENT No Information
--- OUTSIDE RECORDS SUMMARY | 2024-08-25 16:35 | XMS_ITS ---
Author Organization [facility] Address [address] [place] [address] Care Team Providers Care Transfer Man Name Role Phone Luz ElenaMaggie chavez Primary Care Provider Unavailab Ben Moore Jr Unavailable REASON FOR VISIT riggs's PROBLEMS Problem Type ICD Code Onset Dates Problem Status W/U Status Risk SNOMED Code Notes Problem Riggs''s esophagus without dysplasia (K22.70) Active confirmed Riggs's esophagus (747260775) Problem Gastric polyps (K31.7) Active confirmed Benign neoplasm of stomach (88300462) Encounters Encounter Location Date Provider Diagnosis [facility] [place] Outpatient [address] [place], [place] [phone] 01/22/2024 Ben Estrada Jr Riggs''s esophagus without dysplasia K22.70 and Gastric polyps K31.7 ASSESSMENTS Encounter Date Diagnosis Assessment Notes Treatment Notes Treatment Clinical Notes 01/22/2024 Riggs''s esophagus without dysplasia (ICD-10 - K22.70) 01/22/2024 Gastric polyps (ICD-10 - K31.7) PLAN OF TREATMENT No Information
--- OUTSIDE RECORDS SUMMARY | 2024-08-25 16:35 | XMS_ITS | Patient Health Record ---
Author Organization [facility] Address [address] [place] [phone] Care Team Providers Care Ancillary Services Manager Therapy Name Role Phone Maggie Gong Primary Care Provider UnavailBen Hines Jr Unavailable ALLERGIES Allergen (clinical drug ingredient) Drug/Non Drug Allergy documented on EMR Reaction Allergy Type Onset Date Status penicillin G Penicillin G Sodium Unknown Drug Allergy Active RESULTS Component Value Reference Range Notes Pathology Reviewed date:01/28/2024 02:13:06 PM Interpretation: Performing Lab:[facility], [address] [place] [address] Notes/Report: REASON FOR REFERRAL No Information MEDICATIONS Medication SIG (Take, Route, Frequency, Duration) Notes Start Date End Date Status Hyzaar 50-12.5 MG 1 tablet Orally Once a day for 30 day(s) 12/23/2023 Active PriLOSEC OTC 20 MG 1 tablet 30 minutes before morning meal Orally Once a day for 30 day(s) 12/23/2023 Active Omeprazole 40 MG 1 capsule 30 minutes before morning meal Orally Once a day for 90 days Active Zocor 20 MG 1 tablet in the even ing Orally Once a day Active Paxil 20 MG 1 tablet in the morn ing Orally Once a day Active Atorvastatin Calcium 40 MG Oral for 90 Active Losartan Potassium-HCTZ 50-12.5 MG TAKE 1 TABLET BY MOUTH EVERY DAY Oral for 90 Active PARoxetine HCl 10 MG Oral for 90 Active IMMUNIZATIONS Vaccine Route Administration Date Status Comme nts Influenza Unknown 12/08/2018 Administered Influenza Unknown 04/24/2020 Administered Influenza Unknown 06/16/2023 Administered SOCIAL HISTORY Tobacco Use: Social History Observation Description Date Details (start date - stop date) Never Smoker NA - NA Sex Assigned At : Social History Observation Description Sex Assigned At Unknown Tobacco Use/Smoking Question Answer Notes Patient is a nonsmoker Alcohol Screen Question Answer Notes Did you have a drink contain ing alcohol in the past year? Yes How often did you have a dri nk containing alcohol in the past year? Monthly or less (1 point) How many drinks did you have on a typical day when you were drinking in the past year? 1 or 2 drinks (0 point) How often did you have 6 or more drinks on one occasion in the past year? Never (0 point) Points 1 Interpretation Negative PROBLEMS Problem Type ICD Code Onset Dates Problem Status W/U Status Risk SNOMED Code Notes Problem Colon cancer screening (Z12.11) Active confirmed 050138380 Problem Vásquez's esophagus without dysplasia (K22.70) Active confirmed [id number] Problem Gastric polyps (K31.7) Active confirmed Benign neoplasm of stomach (89283740) Problem Vásquez''s esophagus without dysplasia (K22.70) Active confirmed Vásquez's esophagus (563263259) VITAL SIGNS Temperature 97.3 degrees Fahrenheit 12/23/2023 Blood pressure diastolic 00 mm Hg 12/23/2023 Height 63.5 in 12/23/2023 Blood pressure systolic 000 mm Hg 12/23/2023 Weight 134 lb 6 oz lbs 12/23/2023 BMI 23.43 kg/m2 12/23/2023 Encounters Encounter Location Date Provider Diagnosis [facility] [place] Outpatient [address] [place] [phone] 01/22/2024 Ben Estrada Jr Vásquez''s esophagus without dysplasia K22.70 and Gastric polyps K31.7 [facility] [address] [place] [phone] 12/23/2023 Ben Estrada Jr Vásquez's esophagus without dysplasia K22.70 and Colon cancer screening Z12.11 [facility] [address] [place] [phone] 01/28/2024 Ben Estrada Jr ASSESSMENTS Encounter Date Diagnosis Assessment Notes Treatment Notes Treatment Clinical Notes 01/22/2024 Gastric polyps (ICD-10 - K31.7) 01/22/2024 Vásquez''s esophagus without dysplasia (ICD-10 - K22.70) 12/23/2023 Colon cancer screening (ICD-10 - Z12.11) 12/23/2023 Vásquez's esophagus without dysplasia (ICD-10 - K22.70) Endoscopy material was printed PLAN OF TREATMENT Future Test Test Name Order Date COLONOSCOPY 12/08/2018 UPPER GI ENDOSCOPY 10/04/2020 Insurance Providers Payer Name Payer Address Payer Phone Subscriber Number Group Number Insured Name Patient Relationship to Insured Coverage Start Date Coverage End Date [facility] [address] [address] [place] [address] [phone] [id number] MANJIT CAMACHO Self - patient is the insured MEDICAL (GENERAL) HISTORY Medical History History ICD Code Hypertension Seasonal allergies Hyperlipidemia Vásquez's esophagus, EGD 11/11, no dyspla renetta, three-year followup Colonoscopy 01/09, normal, ten-year follo wup Surgical History Surgery Date(Month/Year) knee surgery right bladder suspension
--- OUTSIDE RECORDS SUMMARY | 2024-08-25 16:35 | XMS_ITS ---
Author Organization [facility] Address [address] [place] [phone] Care Team Providers Care Signs Sales Representative Name Role Phone TeenayelitzaMaggie Primary Care Provider Ben Grissom Jr Unavailable [phone] ALLERGIES Allergen (clinical drug ingredient) Drug/Non Drug Allergy documented on EMR Reaction Allergy Type Onset Date Status penicillin G Penicillin G Sodium Unknown Drug Allergy Active REASON FOR VISIT Patient presents today for an upper endoscopy recall letter MEDICATIONS Medication SIG (Take, Route, Frequency, Duration) Notes Start Date End Date Status Hyzaar 50-12.5 MG 1 tablet Orally Once a day for 30 day(s) 12/23/2023 Active PriLOSEC OTC 20 MG 1 tablet 30 minutes before morning meal Orally Once a day for 30 day(s) 12/23/2023 Active Atorvastatin Calcium 40 MG Oral for 90 Active Losartan Potassium-HCTZ 50-12.5 MG TAKE 1 TABLET BY MOUTH EVERY DAY Oral for 90 Active PARoxetine HCl 10 MG Oral for 90 Active Omeprazole 40 MG 1 capsule 30 minutes before morning meal Orally Once a day for 90 days Active Zocor 20 MG 1 tablet in the even ing Orally Once a day Active Paxil 20 MG 1 tablet in the morn ing Orally Once a day Active SOCIAL HISTORY Tobacco Use: Social History Observation [...] W/U Status Risk SNOMED Code Notes Problem Vásquez's esophagus without dysplasia (K22.70) Active confirmed 432642117 VITAL SIGNS BMI 23.43 kg/m2 12/23/2023 Blood pressure systolic 000 mm Hg 12/23/19 24 Blood pressure diastolic 00 mm Hg 024 Height 63.5 in 12/23/2023 Temperature 97.3 degrees Fahrenheit 12/23/19 24 Weight 134 lb 6 oz lbs 12/23/2023 Encounters Encounter Location Date Provider Diagnosis [facility] [address] [place] [address] 12/23/2023 Ben Estrada Jr Vásquez's esophagus without dysplasia K22.70 and Colon cancer screening Z12.11 ASSESSMENTS Encounter Date Diagnosis Assessment Notes Treatment Notes Treatment Clinical Notes 12/23/2023 Vásquez's esophagus without dysplasia (ICD-10 - K22.70) Endoscopy material was printed 12/23/2023 Colon cancer screening (ICD-10 - Z12.11) PLAN OF TREATMENT Medication Medication Name Sig Start Date Stop Date Notes Omeprazole 40 MG 1 capsule 30 minutes before morning meal Orally Once a day for 90 days Treatment Notes Assessment Notes Vásquez's esophagus without dysplasia En doscopy material was printed Next Appt Details Follow Up: 1 Year, Reason: Progress Notes * Examination Category Sub-Category Detail Notes General Examination GENERAL APPEARANCE: in no ac [place] distress HEAD: normocephalic EYES: sclera non-icteric NECK/THYROID: no lymphadenopathy HEART: S1, S2 normal, no mu rmurs CHEST: normal shape and exp ansion LUNGS: clear to auscultatio n bilaterally ABDOMEN: soft, nontender, non distended, bowel sounds present, no organomegaly SKIN: anicteric EXTREMITIES: no clubbing, cyanosi s, or edema PSYCH: cognitive function i ntact ORAL CAVITY: mucosa moist
== END 2024-08-25 15:04 | disposition home or self-care (01) ==
LOC: HO.MAMMO 15:03
PROVIDERS: PCP Internal Medicine; Visit Provider Internal Medicine
DX: Z12.31 Encounter for screening mammogram for malignant neoplasm of breast (principal)
CPT/HCPCS: 77063; 77067

== ENCOUNTER → 2024-08-25 15:15 | Outpatient (BNV) | payer MEDICARE, SELFPAY | PROVIDERS: PCP Internal Medicine; Visit Provider Internal Medicine | DX: Z12.31 Encounter for screening mammogram for malignant neoplasm of breast (principal) | CPT/HCPCS: 77063; 77067 ==

== ENCOUNTER 2024-08-29 08:29 | Outpatient (REF) | payer MEDICARE, SELFPAY ==
--- OUTSIDE RECORDS SUMMARY | 2024-08-29 08:49 | XMS_ITS ---
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
--- OUTSIDE RECORDS SUMMARY | 2024-08-29 08:49 | XMS_ITS | Patient Health Record ---
Author Organization [facility] Address [address] [place] [phone] Care Team Providers Care Ager Tender Name Role Phone Maggie Gong Primary Care Provider UnavailBen Hines Jr Unavailable ALLERGIES Allergen (clinical drug ingredient) Drug/Non Drug Allergy documented on EMR Reaction Allergy Type Onset Date Status penicillin G Penicillin G Sodium Unknown Drug Allergy Active RESULTS Component Value Reference Range Notes Pathology Reviewed date:01/28/2024 02:13:06 PM Interpretation: Performing Lab:[facility], [address] [place] [address] Notes/Report: REASON FOR REFERRAL No Information MEDICATIONS [...] Problem Colon cancer screening (Z12.11) Active confirmed [id number] Problem Vásquez's esophagus without dysplasia (K22.70) Active confirmed [id number] Problem Gastric polyps (K31.7) Active confirmed Benign neoplasm of stomach (47945427) Problem Vásquez''s esophagus without dysplasia (K22.70) Active confirmed Vásquez's esophagus (365027805) VITAL SIGNS Temperature 97.3 degrees Fahrenheit 12/23/2023 Blood pressure diastolic 00 mm Hg 12/23/2023 Height 63.5 in 12/23/2023 Blood pressure systolic 000 mm Hg 12/23/2023 Weight 134 lb 6 oz lbs 12/23/2023 BMI 23.43 kg/m2 12/23/2023 Encounters Encounter Location Date Provider Diagnosis [facility] [address] [place] [phone] 01/22/2024 Ben Estrada Jr Vásquez''s esophagus without dysplasia K22.70 and Gastric polyps K31.7 [facility] [address] [place] [phone] 12/23/2023 Ben Estrada Jr Vásquez's esophagus without dysplasia K22.70 and Colon cancer screening Z12.11 [facility] [address] [place] [phone] 01/28/2024 Ben Estrada Jr ASSESSMENTS Encounter Date [...] Insured Coverage Start Date Coverage End Date [facility] [address] [address] [place] [address] [id number] MANJIT CAMACHO Self - patient is the insured MEDICAL (GENERAL) HISTORY Medical History History ICD Code Hypertension Seasonal allergies Hyperlipidemia Vásquez's esophagus, EGD 11/11, no dyspla renetta, three-year followup Colonoscopy 01/09, normal, ten-year follo wup Surgical History Surgery Date(Month/Year) knee surgery right bladder suspension
--- OUTSIDE RECORDS SUMMARY | 2024-08-29 08:49 | XMS_ITS ---
Author Organization [facility] Address [address] [place] [phone] Care Team Providers Care Turn Out Worker Name Role Phone Maggie Gong Primary Care Provider Unavailab Ben Moore Jr REASON FOR VISIT pathology Encounters Encounter Location Date Provider Diagnosis [facility] [address] [place] [address] 01/28/2024 Ben Estrada Jr PLAN OF TREATMENT No Information
--- OUTSIDE RECORDS SUMMARY | 2024-08-29 08:49 | XMS_ITS ---
Author Organization [facility] Address [address] [place] [phone] Care Team Providers Care Glass Bead Maker Name Role Phone TeenayelitzaMaggie Primary Care Provider Ben Grissom Jr Unavailable ALLERGIES Allergen (clinical drug ingredient) [...] Vásquez's esophagus without dysplasia (K22.70) Active confirmed [id number] VITAL SIGNS BMI 23.43 kg/m2 12/23/2023 Blood pressure systolic 000 mm Hg 12/23/19 24 Blood pressure diastolic 00 mm Hg 024 Height 63.5 in 12/23/2023 Temperature 97.3 degrees Fahrenheit 12/23/19 24 Weight 134 lb 6 oz lbs 12/23/2023 Encounters Encounter Location Date Provider Diagnosis [facility] [address] [place] [address] 12/23/2023 Ben Estrada Jr Vásquez's esophagus without [...] General Examination GENERAL APPEARANCE: in no ac [place] distress HEAD: normocephalic EYES: sclera non-icteric NECK/THYROID: no lymphadenopathy HEART: S1, S2 normal, no mu rmurs CHEST: normal shape and exp ansion LUNGS: clear to auscultatio n bilaterally ABDOMEN: soft, nontender, non distended, bowel sounds present, no organomegaly SKIN: anicteric EXTREMITIES: no clubbing, cyanosi s, or edema PSYCH: cognitive function i ntact ORAL CAVITY: mucosa moist
[2024-08-29 10:19] LABS: MANUAL DIFF FLAG NO
[2024-08-29 10:30] LABS: Basophils Absolute Auto 0.1 X10*3/uL (0.0-0.2); Basophils Percent Auto 1.6 % (0-2); Eosinophils Absolute Auto 0.4 X10*3/uL (0.0-0.4); Eosinophils Percent Auto 6.2 % (0-4); Hematocrit 37.5 % (37.0-47.0); Imm Gran Abs Auto 0.01 X10*3/uL (0.00-0.03); Imm Gran Pct Auto 0.2 % (0.0-0.4); Lymphocytes Absolute Auto 2.6 X10*3/uL (1.2-4.9); Lymphocytes Percent Auto 42.9 % (20-40); Mean Corpuscular Hemoglobin 26.5 pg (27.0-33.0); Mean Corpuscular Volume 82.8 fL (80.0-98.0); Mean Platelet Volume 10.3 fL (9.4-12.3); Monocytes Absolute Auto 0.3 X10*3/uL (0.1-1.2); Monocytes Percent Auto 5.5 % (2-11); Neutrophils Absolute Auto 2.7 x10*3/uL (2.0-8.3); Neutrophils Percent Auto 43.6 % (45-73); Platelet Count 317 X10*3/uL (160-400); Red Blood Count 4.53 X10*6/uL (4.20-5.50); Red Cell Distribution Width 15.5 % (11.0-16.0); White Blood Count 6.2 X10*3/uL (4.8-10.8)
[2024-08-29 11:32] LABS: Alanine Aminotransferase 29 U/L (0-31); Albumin Level 4.3 g/dL (3.5-5.0); Alkaline Phosphatase 117 U/L (39-117); Anion Gap 9 (12-20); Aspartate Amino Transferase 29 U/L (5-31); Bilirubin Total 0.5 mg/dL (0.0-1.0); Blood Urea Nitrogen 16 mg/dL (9-16); Calcium 9.1 mg/dL (8.4-10.2); Carbon Dioxide 28 mmol/L (22-29); Chloride 107 mmol/L (96-108); Cholesterol 165 mg/dL (<200); Estimated Glomerular Filt Rate > 60; Glucose Random 93 mg/dL (60-115); HDL Cholesterol 53 mg/dL (>40); LDL Cholesterol Calculated 76 mg/dL (<100); Potassium 3.9 mmol/L (3.3-5.1); Sodium 140 mmol/L (135-145); Total Protein 7.1 g/dL (6.5-8.0); Triglycerides 182 mg/dL (<150)
== END 2024-08-29 08:30 | disposition home or self-care (01) ==
LOC: HO.10HDL 08:29
PROVIDERS: Visit Provider Internal Medicine
DX: E78.00 Pure hypercholesterolemia, unspecified (principal); F32.5 Major depressive disorder, single episode, in full remission; I10 Essential (primary) hypertension; K22.70 Barrett's esophagus without dysplasia
CPT/HCPCS: 36415; 80053; 80061; 85025

== ENCOUNTER 2025-03-06 08:32 | Outpatient (REF) | payer MEDICARE, SELFPAY ==
--- OUTSIDE RECORDS SUMMARY | 2025-03-06 08:39 | XMS_ITS | Patient Health Record ---
Author Organization [facility] Address [address] [place] [phone] Care Team Providers Care Elementary Instructional Coach Name Role Phone Maggie Gong Primary Care Provider UnavailBen Hines Jr Unavailable Allergies Allergen (clinical drug ingredient) Drug/Non Drug Allergy documented on EMR Reaction Allergy Type Onset Date Status penicillin G Penicillin G Sodium Unknown Drug Allergy Active Reason For Referral No Information Medications Medication SIG (Take, Route, Frequency, Duration) Notes Start Date End Date Status Zocor 20 MG 1 tablet in the even ing Orally Once a day Active Atorvastatin Calcium 40 MG Oral for 90 Active Lipitor 40 MG 1 tablet Orally Once a day Active Paxil 10 MG 1 tablet in the morn ing Orally Once a day Active Omeprazole 40 MG 1 capsule 30 minutes before morning meal Orally Once a day for 90 days Unknown PriLOSEC OTC 20 MG 1 tablet 30 minutes before morning meal Orally Once a day for 30 day(s) 12/23/2023 Active Hyzaar 50-12.5 MG 1 tablet Orally Once a day for 30 day(s) 12/23/2023 Active PARoxetine HCl 10 MG Oral for 90 Active Losartan Potassium-HCTZ 50-12.5 MG TAKE 1 TABLET BY MOUTH EVERY DAY Oral for 90 Active Immunizations Vaccine Route Administration Date Status Comme nts Influenza Unknown 12/08/2018 Administered Influenza Unknown 04/24/2020 Administered Influenza Unknown 06/16/2023 Administered Influenza Unknown 06/14/2024 Administered Social History Tobacco Use: Social History Observation Description Date Details (start date - stop date) Never Smoker NA - NA Tobacco Use/Smoking Question Answer Notes Patient is [...] Never (0 point) Points 1 Interpretation Negative Problems Problem Type SNOMED Code ICD Code Onset Dates Problem Status W/U Status Risk Notes Problem [id number] Colon cancer screening (Z12.11) Active confirmed Problem 079457286 Vásquez's esophagus without dysplasia (K22.70) Active confirmed Problem Benign neoplasm of stomach (54765680) Gastric polyps (K31.7) Active confirmed Problem Vásquez's esophagus (151355217) Vásquez''s esophagus without dysplasia (K22.70) Active confirmed Vital Signs Temperature 97.1 degrees Fahrenheit 03/02/2025 Blood pressure diastolic 01 mm Hg 03/02/2025 Height 63.5 in 03/02/2025 Blood pressure systolic 001 mm Hg 03/02/2025 Weight 127.4 lbs 03/02/2025 BMI 22.21 kg/m2 03/02/2025 Encounters Encounter Location Date Provider Diagnosis [facility] [address] [place] [phone] 03/02/2025 Ben Estrada Jr Plan Of Treatment Future Test Test Name Order Date COLONOSCOPY 12/08/2018 UPPER GI ENDOSCOPY 10/04/2020 Insurance Providers Payer Name Payer Address Payer Phone Subscriber Number Group Number Insured Name Patient Relationship to Insured Coverage Start Date Coverage End Date [employer] [address] [place], [place] [id number] MANJIT CAMACHO Self - patient is the insured 4 Medical (General) History Medical History History ICD Code Hypertension Seasonal allergies Hyperlipidemia Vásquez's esophagus, EGD 11/11, no dyspla renetta, three-year followup Colonoscopy 01/09, normal, ten-year follo wup Surgical History Surgery Date(Month/Year) bladder suspension knee surgery right
[2025-03-06 09:54] LABS: Alanine Aminotransferase 24 U/L (0-31); Albumin Level 4.5 g/dL (3.5-5.0); Alkaline Phosphatase 124 U/L (39-117); Anion Gap 12 (12-20); Aspartate Amino Transferase 23 U/L (5-31); Blood Urea Nitrogen 22 mg/dL (9-16); Calcium 8.9 mg/dL (8.4-10.2); Carbon Dioxide 29 mmol/L (22-29); Chloride 104 mmol/L (96-108); Estimated Glomerular Filt Rate > 60; Potassium 3.5 mmol/L (3.3-5.1); Sodium 141 mmol/L (135-145); Total Protein 7.2 g/dL (6.5-8.0)
== END 2025-03-06 08:33 | disposition home or self-care (01) ==
LOC: HO.10HDL 08:32
PROVIDERS: Visit Provider Internal Medicine
DX: Z00.00 Encounter for general adult medical examination without abnormal findings (principal); I10 Essential (primary) hypertension; E78.00 Pure hypercholesterolemia, unspecified; K22.70 Barrett's esophagus without dysplasia; F32.5 Major depressive disorder, single episode, in full remission
CPT/HCPCS: 36415; 80053